=== PATIENT | male | born 1995 | race American Indian/Alaskan Native ===

== ENCOUNTER 2023-02-20 11:33 | Emergency (ER) | payer MEDICAID, OTHER ==
[2023-02-20 11:42] VITALS: BP 135/79; PULSE 105
[2023-02-20] MEDS ORDERED: Diphtheria,Pertussis(Acell),Tetanus Vaccine 0.5 ML Syringe IM ONE (11:57)
[2023-02-20] MEDS ORDERED: Silver Sulfadiazine 1% Crm 50 GM Tube TOP ONE (11:58)
[2023-02-20] MEDS ORDERED: Lidocaine 5% Oint 35.44 GM Tube TOP ONE (11:58)
== END 2023-02-20 12:25 | disposition home or self-care (01) ==
LOC: DL.ED 11:33
DX: T22.212A Burn of second degree of left forearm, initial encounter (principal); Z23 Encounter for immunization; J45.909 Unspecified asthma, uncomplicated; X58.XXXA Exposure to other specified factors, initial encounter
CPT/HCPCS: 90471; 90715; 99283; A9270